=== PATIENT | female | born 1960 | race African-American/Black ===

== ENCOUNTER 2017-10-06 10:35 | Observation (INO) | payer OTHER ==
[2017-10-06 11:04] LABS: ABSOLUTE BASOPHILS # (AUTO) 0.1 10^3/uL (0.0-0.2); ABSOLUTE EOSINOPHILS # (AUTO) 0.2 10^3/uL (0.0-0.6); ABSOLUTE LYMPHOCYTES (AUTO) 3.3 10^3/uL (0.5-4.7); ABSOLUTE MONOCYTES (AUTO) 0.7 10^3/uL (0.1-1.4); ABSOLUTE NEUT (AUTO) 7.7 10^3/uL (1.7-8.2); BASOPHILS % (AUTO) 0.6 % (0-2); EOSINOPHILS % (AUTO) 1.5 % (0-6); HEMATOCRIT 39.2 % (36.0-47.0); HEMOGLOBIN 12.9 g/dL (12.0-15.5); LYMPHOCYTES % (AUTO) 27.9 % (13-45); MEAN CORPUSCULAR HEMOGLOBIN 28.5 pg (27.0-33.4); MEAN CORPUSCULAR HGB CONC 33.1 g/dL (32.0-36.0); MEAN CORPUSCULAR VOLUME 86 fl (80-97); MONOCYTES % (AUTO) 5.7 % (3-13); PLATELET COUNT 451 10^3/uL (150-450); RED BLOOD COUNT 4.55 10^6/uL (3.72-5.28); RED CELL DISTRIBUTION WIDTH 14.1 % (11.5-14.0); SEGMENTED NEUTROPHILS % (AUTO) 64.3 % (42-78); TOTAL CELLS COUNTED % (AUTO) 100 %; WHITE BLOOD COUNT 11.9 10^3/uL (4.0-10.5)
--- NOTE | 2017-10-06 11:36 | EKG REPORT ---
SEVERITY:- ABNORMAL ECG - SINUS RHYTHM LEFT VENTRICULAR HYPERTROPHY : Confirmed by: Gauri Pérez MD 06-Oct-2017 11:36:16
--- NOTE | 2017-10-06 12:13 | RADIOLOGY REPORT (SQ) ---
EXAM DESCRIPTION: CHEST SINGLE VIEW COMPLETED DATE/TIME: 10/06/2017 11:24 am REASON FOR STUDY: chest pain COMPARISON: 09/26/2010 TWO-VIEW CHEST EXAM PARAMETERS: NUMBER OF VIEWS: One view. TECHNIQUE: Single frontal radiographic view of the chest acquired. RADIATION DOSE: NA LIMITATIONS: None. FINDINGS: LUNGS AND PLEURA: No opacities, masses or pneumothorax. No pleural effusion. MEDIASTINUM AND HILAR STRUCTURES: No masses. Contour normal. HEART AND VASCULAR STRUCTURES: Heart normal in size. Normal vasculature. BONES: No acute findings. HARDWARE: None in the chest. OTHER: No other significant finding. IMPRESSION: NO ACUTE RADIOGRAPHIC FINDING IN THE CHEST. TECHNICAL DOCUMENTATION: JOB ID: [id number] [employer]- All Rights Reserved Reading location - IP/workstation name: [email or web address]
[2017-10-06 12:24] LABS: ALANINE AMINOTRANSFERASE 23 U/L (9-52); ALBUMIN 4.3 g/dL (3.5-5.0); ALKALINE PHOSPHATASE 66 U/L (38-126); ANION GAP 10 (5-19); ASPARTATE AMINO TRANSFERASE 20 U/L (14-36); BILIRUBIN,DIRECT 0.2 mg/dL (0.0-0.4); BILIRUBIN,TOTAL 0.5 mg/dL (0.2-1.3); BLOOD UREA NITROGEN 11 mg/dL (7-20); CALCIUM 9.5 mg/dL (8.4-10.2); CARBON DIOXIDE 26 mmol/L (22-30); CHLORIDE 106 mmol/L (98-107); GLUCOSE 105 mg/dL (75-110); POTASSIUM 4.3 mmol/L (3.6-5.0); SODIUM 142.1 mmol/L (137-145)
--- NOTE | 2017-10-06 12:52 | ER Document Report ---
ED Cardiac - General Chief Complaint: Chest Pain Stated Complaint: CHEST PAIN Time Seen by Provider: 10/06/17 12:42 Mode of Arrival: Ambulatory Information source: Patient TRAVEL OUTSIDE OF THE U.S. IN LAST 30 DAYS: No - HPI Patient complains to provider of: Chest pain Use of: denies: Alcohol, Amphetamines, Bath salts, Caffeine, Cocaine, Decongestants Was the onset of pain: Sudden Is the pain a: New problem Chest pain location: Substernal Quality of pain: Intermittent, Dull, Sharp Severity now: None Severity at worst: Moderate Chest pain precipitating factors: Mental Exertion/Stress Cardiac risk factors: Hypertension, Smoker, + Family history Positive cardiac history: No Associated symptoms: Anxiety, Shortness of breath. denies: Diaphoresis, Nausea/ vomiting, Syncope Exacerbated by: Emotional stress Relieved by: Nothing Similar symptoms previously: No Recently seen / treated by doctor: Yes - THIS RADHA Nails. HEALTH Notes: Recently traveled by automobile to [place] and back on [employer]. - Related Data Allergies/Adverse Reactions: nuts Allergy (Severe, Uncoded 01/26/11 13:51) Anaphylaxis Past Medical History - General Information source: Patient - Social History Smoking Status: Current Every Day Smoker Cigarette use (# per day): Yes Chew tobacco use (# tins/day): No Frequency of alcohol use: Rare Drug Abuse: None Lives with: Family Family History: CAD Patient has suicidal ideation: No Patient has homicidal ideation: No - Past Medical History Cardiac Medical History: Reports: Hx Hypercholesterolemia, Hx Hypertension Pulmonary Medical History: Reports: Hx Bronchitis EENT Medical History: Reports: None Neurological Medical History: Reports: None Endocrine Medical History: Reports: None Renal/ Medical History: Reports: None. Denies: Hx Peritoneal Dialysis Malignancy Medical History: Reports: None GI Medical History: Reports: Hx Gastroesophageal Reflux Disease Musculoskeletal Medical History: Reports None Psychiatric Medical History: Reports: None Past Surgical History: Reports: Hx Section, Hx Hysterectomy - Immunizations Hx Diphtheria, Pertussis, Tetanus Vaccination: Yes - 2009 Review of Systems - Review of Systems Constitutional: No symptoms reported EENT: No symptoms reported Cardiovascular: See HPI Respiratory: See HPI Gastrointestinal: No symptoms reported Genitourinary: No symptoms reported Female Genitourinary: Post menopausal Musculoskeletal: No symptoms reported Skin: No symptoms reported Neurological/Psychological: No symptoms reported Physical Exam - Vital signs Vitals: Resp 18 10/06/17 10:42 Interpretation: Hypertensive. No: Tachycardic, Tachypneic - General General appearance: Appears well, Alert In distress: None - HEENT Head: Normocephalic Eyes: Normal Conjunctiva: Normal Ears: Normal Nasal: Normal Mouth/Lips: Normal Mucous membranes: Normal - Respiratory Respiratory status: No respiratory distress Breath sounds: Normal - Cardiovascular Rhythm: Regular Heart sounds: Normal auscultation Murmur: No - Abdominal Inspection: Normal Distension: No distension - Back Back: Normal - Extremities General upper extremity: Normal inspection General lower extremity: Normal inspection. No: Tender, Edema - Neurological Neuro grossly intact: Yes Cognition: Normal Orientation: AAOx4 - Psychological Associated symptoms: Normal affect, Normal mood - Skin Skin Temperature: Warm Skin Moisture: Dry Skin Color: Normal Skin Turgor: Elastic Course - Vital Signs Vital signs: Temp Pulse Resp BP Pulse Ox 14 139/101 H 100 10/06/17 12:01 10/06/17 12:00 10/06/17 12:01 - Laboratory Result Diagrams: 10/06/17 10:15 10/06/17 11:53 Laboratory results interpreted by me: 10/06/17 10:15 WBC 11.9 H RDW 14.1 H Plt Count 451 H - EKG Interpretation by Wy EKG shows normal: Sinus rhythm, [place], Intervals, QRS Complexes, ST-T Waves - LAT. T ABNLS, NS Rate: Normal Rhythm: NSR - Consults DR. Marsha MALDONADO Time consulted: 14:24 Consulted provider: will come to ER Discharge - Discharge Clinical Impression: Chest pain Qualifiers: Chest pain type: unspecified Qualified Code(s): R07.9 - Chest pain, unspecified Condition: Good Disposition: ADMITTED OBSERVATION Unit Admitted: Telemetry
[2017-10-06] MEDS ORDERED: DEXTROSE 40% GEL 15 GM TUBE PO PRN ×2 (18:39)
[2017-10-06] MEDS ORDERED: DEXTROSE 50%-WATER 25 GM/50 ML DISP.SYRIN IV PRN ×2 (18:39)
[2017-10-06] MEDS ORDERED: NITROGLYCERIN 0.4 MG/TAB 25 TAB/BOTTLE SL PRN (18:39)
[2017-10-06] MEDS ORDERED: GLUCAGON,HUMAN RECOMB 1 MG INJ SUBCUT PRN (18:39)
--- NOTE | 2017-10-06 18:39 | PDOC H&P ---
History of Present Illness Admission Date/PCP: 10/06/17 14:50 Patient complains of: CHEST PAIN. History of Present Illness: MONTEZ LOWERY is a 56 year old female Pt is a 56 y/o AAF admitted with c/o chest pain that has been going on intermittently for past few weeks. Pt is a smoker and d/w her extensively about tobacco cessation. Pt denies any other significant PMH. Pt work at [employer] in [place]. Pt is under a lot of stress due to her family . Currently chest pain free. Past Medical History Cardiac Medical History: Reports: Myocardial Infarction, Hyperlipidema, Hypertension Pulmonary Medical History: Reports: Bronchitis EENT Medical History: Reports: None Neurological Medical History: Reports: None Endocrine Medical History: Reports: None Renal/ Medical History: Reports: None Malignancy Medical History: Reports: None GI Medical History: Reports: Gastroesophageal Reflux Disease Musculoskeltal Medical History: Reports: None Psychiatric Medical History: Reports: None Past Surgical History Past Surgical History: Reports: Section, Hysterectomy Social History Lives with: Family Smoking Status: Current Every Day Smoker Frequency of Alcohol Use: None Drugs: None - Advance Directive Resuscitation Status: Full Code Family History Family History: CAD Parental Family History Reviewed: Yes Children Family History Reviewed: NA Sibling(s) Family History Reviewed.: NA Medication/Allergy Home Medications: Multivitamin [One-A-Day Essential] 1 each PO DAILY 10/06/17 Vitamin B Complex [B Complex] 1 each PO DAILY 10/06/17 Allergies/Adverse Reactions: nuts Allergy (Severe, Uncoded 01/26/11 13:51) Anaphylaxis Review of Systems Constitutional: ABSENT: anorexia, chills, headache(s), weight gain, weight loss Eyes: ABSENT: visual disturbances Cardiovascular: PRESENT: chest pain. ABSENT: edema, palpitations Gastrointestinal: ABSENT: abdominal pain Neurological: ABSENT: frequent falls Physical Exam Vital Signs: Temp Pulse Resp BP Pulse Ox 23 H 129/75 H 96 10/06/17 17:29 10/06/17 17:29 10/06/17 17:29 General appearance: PRESENT: no acute distress, cooperative Head exam: PRESENT: atraumatic, normocephalic Eye exam: PRESENT: EOMI Ear exam: PRESENT: normal external ear exam Neck exam: ABSENT: carotid bruit, lymphadenopathy, tenderness Respiratory exam: PRESENT: clear to auscultation lucia. ABSENT: rhonchi, wheezes Cardiovascular exam: PRESENT: RRR. ABSENT: diastolic murmur GI/Abdominal exam: PRESENT: soft. ABSENT: firm, tenderness Rectal exam: PRESENT: deferred Neurological exam: PRESENT: alert, awake, oriented to person, oriented to place , oriented to time, oriented to situation, CN II-XII grossly intact Results Impressions: Chest X-Ray 10/06/17 00:00 IMPRESSION: NO ACUTE RADIOGRAPHIC FINDING IN THE CHEST. Assessment & Plan - Diagnosis (1) Chest pain Qualifiers: Chest pain type: unspecified Is this a current diagnosis for this admission?: Yes Plan: We will admit pt for eval of cardiac chest pain. we will cycle cardiac enzymes . pt will get stress test in am. (2) Eczema of both hands Plan: Started pt on claritin. (3) Tobacco abuse counseling Is this a current diagnosis for this admission?: Yes Plan: d/w pt about tobacco cessation. nicotine patch/ (4) Tobacco abuse Is this a current diagnosis for this admission?: Yes - Time Time Spent: 30 to 50 Minutes Anticipated discharge: Home Within: within 24 hours - Inpatient Certification Based on my medical assessment, after consideration of the patient's comorbidities, presenting symptoms, or acuity I expect that the services needed warrant INPATIENT care.: Yes I certify that my determination is in accordance with my understanding of Medicare's requirements for reasonable and necessary INPATIENT services [42 CFR 412.3e].: Yes Medical Necessity: Need For Continuous Telemetry Monitoring
[2017-10-06] MEDS ORDERED: LISINOPRIL 5 MG TABLET PO ONE (18:46)
[2017-10-06] MEDS ORDERED: DIPHENHYDRAMINE HCL 25 MG CAPSULE PO PRN (19:50)
[2017-10-06] MEDS ORDERED: LORATADINE 10 MG TABLET PO SCH (22:00)
[2017-10-06] MEDS ORDERED: ATORVASTATIN CALCIUM 40 MG TABLET PO SCH (22:00)
[2017-10-06] MEDS ORDERED: LORAZEPAM 1 MG TABLET PO ONE (22:00)
[2017-10-07] MEDS ORDERED: LANSOPRAZOLE 30 MG TAB.RAP.DR PO SCH (06:00)
[2017-10-07 06:19] LABS: APPEARANCE,URINE CLEAR; BILIRUBIN,URINE NEGATIVE (NEGATIVE); COLOR,URINE STRAW; GLUCOSE, URINE NEGATIVE (NEGATIVE); KETONES,URINE NEGATIVE (NEGATIVE); LEUKOCYTE ESTERASE,URINE TRACE (NEGATIVE); NITRITE,URINE NEGATIVE (NEGATIVE); PROTEIN,URINE NEGATIVE (NEGATIVE); URINE SPECIFIC GRAVITY 1.013; UROBILINOGEN,URINE NEGATIVE mg/dL (<2.0)
[2017-10-07 09:44] LABS: ABSOLUTE BASOPHILS # (AUTO) 0.1 10^3/uL (0.0-0.2); ABSOLUTE EOSINOPHILS # (AUTO) 0.3 10^3/uL (0.0-0.6); ABSOLUTE LYMPHOCYTES (AUTO) 2.8 10^3/uL (0.5-4.7); ABSOLUTE MONOCYTES (AUTO) 0.5 10^3/uL (0.1-1.4); ABSOLUTE NEUT (AUTO) 6.5 10^3/uL (1.7-8.2); BASOPHILS % (AUTO) 0.6 % (0-2); EOSINOPHILS % (AUTO) 2.6 % (0-6); HEMATOCRIT 39.3 % (36.0-47.0); HEMOGLOBIN 12.9 g/dL (12.0-15.5); LYMPHOCYTES % (AUTO) 27.6 % (13-45); MEAN CORPUSCULAR HEMOGLOBIN 28.4 pg (27.0-33.4); MEAN CORPUSCULAR HGB CONC 32.8 g/dL (32.0-36.0); MEAN CORPUSCULAR VOLUME 87 fl (80-97); MONOCYTES % (AUTO) 5.4 % (3-13); PLATELET COUNT 423 10^3/uL (150-450); RED BLOOD COUNT 4.54 10^6/uL (3.72-5.28); RED CELL DISTRIBUTION WIDTH 14.2 % (11.5-14.0); SEGMENTED NEUTROPHILS % (AUTO) 63.8 % (42-78); TOTAL CELLS COUNTED % (AUTO) 100 %; WHITE BLOOD COUNT 10.2 10^3/uL (4.0-10.5)
[2017-10-07 09:52] LABS: ANION GAP 10 (5-19); BLOOD UREA NITROGEN 19 mg/dL (7-20); CALCIUM 9.4 mg/dL (8.4-10.2); CARBON DIOXIDE 25 mmol/L (22-30); CHLORIDE 109 mmol/L (98-107); GLUCOSE 108 mg/dL (75-110); POTASSIUM 4.3 mmol/L (3.6-5.0); SODIUM 144.3 mmol/L (137-145)
[2017-10-07] MEDS ORDERED: ASPIRIN 325 MG TABLET, ENT COATED PO SCH (10:00)
--- NOTE | 2017-10-07 12:46 | DRAGON STRESS TEST REPORT ---
INTRAVENOUS LEXISCAN CARDIOLITE STRESS TEST USING SINGLE PHOTON EMMISION COMPUTERIZED TOMOGRAPHIC. DATE OF PROCEDURE: September, INDICATION : Chest pain CARDIAC RISK FACTORS: Dyslipidemia, tobacco abuse, family history of CAD RESTING EKG: Sinus rhythm with minor nonspecific T-wave inversion, possible LVH STRESS EKG: No significant ST segment changes noted with LexiScan bolus REASON FOR TERMINATION: Protocol. PROCEDURE REPORT: Baseline heart rate 73 beats per minute with blood pressure of 142/78. Patient had no significant complaints. Patient was bolused with Lexiscan 0.4 mg intravenously followed by saline bolus. Heart rate at 2 minutes post bolus 105 with a blood pressure of 123/81. 3 minutes post bolus heart rate 103 with blood pressure of 123/72. No significant EKG changes were noted. Patient had no significant complaints during the procedure or postprocedure. CONCLUSIONS: Normal EKG and hemodynamic response to IV LexiScan. NUCLEAR DATA: At rest the patient was given 11.84 millicuries of technetium 99 sestamibi injected intravenously. As per protocol rest gated SPECT images were obtained. On day of stress test, the patient was given intravenous LexiScan at a dose of 0.4 mg in 5 mL intravenously, followed by flush with normal saline. Subsequently the stress dose of 32.6 millicuries of technetium 99 sestamibi was injected intravenously. As per protocol stress gated images were obtained. NUCLEAR INTERPRETATION: Both raw and processed data were used for interpretation. Visual, qualitative, computer-generated quantitative data was used. There was good myocardial uptake of technetium compound. Motion artifact and soft tissue attenuations were noted. Increased visceral uptake was noted. No definitive areas of transient perfusion defect noted, No definitive areas of fixed perfusion defect or scars noted. Mild decreased uptake noted in the distal inferior wall wall, felt to be artifactual. No corresponding wall motion abnormalities noted. Imaging was performed without attenuation correction. EKG gated imaging showed LV EF at 42 %, rest and stress gated EF similar visually. T. I D. ratio was 1.18. Lung heart ratio noted to be within normal limits 0.41. No significant extracardiac and abnormal radiotracer activities were noted. RV free wall uptake was noted to be WNL. IMPRESSION: Also refer to comments under nuclear interpretation. Also test results needs to be interpreted in the context of pretest probability. 1. No definitive areas of transient perfusion defect noted. 2. There is no definitive scintigraphic evidence of myocardial infarction/scar. 3. EKG gated imaging shows left ventricular ejection fraction of approx. 42 %. 4. Clinical correlation requested as occasionally single vessel disease or balanced ischemia could be missed. In approximately 10% of the cases Lexiscan may not cause adequate vasodilatory stress. RECOMMENDATIONS: Aggressive risk factor modification and medical management. Further evaluation may be needed if continued symptoms or other high risk indicators are noted on clinical evaluation. Close cardiology follow-up is also recommended. Clinical correlation with echocardiogram derived ejection fraction. Inability to exercise by itself can lead to increased cardiovascular event risks. Consider cardiology consultation and or follow-up if clinically indicated. I am available for cardiology evaluation and consultation if requested by the brusher tender, unless patient already has a flume worker. Dr. Derrick Hurtado. MRCP Board certified in cardiology and sleep medicine. Board certified in nuclear cardiology, adult echocardiography. MP
[2017-10-07] MEDS ORDERED: CAFFEINE CITRATED INJ/PF 60 MG/3 ML SDV ONE (13:49)
[2017-10-07] MEDS ORDERED: REGADENOSON INJ 0.4 MG/5 ML DISP.SYRIN IV ONE (13:49)
--- NOTE | 2017-10-07 16:16 | PDOC DISCHARGE SUMMARY ---
General - Admit/Disc Date/PCP Admission Date/Primary Care Provider: 10/06/17 14:50 Discharge Date: 10/07/17 - Discharge Diagnosis (1) Chest pain Is this a current diagnosis for this admission?: Yes Summary: Patient status post negative Cardiolite. With recommendations for aggressive lifestyle modification. Patient advised for tobacco cessation. Patient to take an aspirin 81 mg for primary prevention of coronary event. (2) Eczema of both hands Is this a current diagnosis for this admission?: Yes Summary: Patient to continue antihistamine therapy for her eczema. Overnight trial of Claritin 10 mg has improved her neck rash significantly. (3) Tobacco abuse counseling Is this a current diagnosis for this admission?: Yes Summary: Discussed with with patient about the side effects and the risks of smoking starting from cancer heart disease stable COPD. (4) Tobacco abuse Is this a current diagnosis for this admission?: Yes - Additional Information Resuscitation Status: Full Code Discharge Diet: Cardiac Discharge Activity: Walk Frequently Prescriptions: Aspirin [Aspirin 81 mg Chewable Tablet] 81 mg PO DAILY #1 pkg Loratadine [Claritin 10 mg Tablet] 10 mg PO QHS #30 tablet Simvastatin [Zocor 5 mg Tablet] 5 mg PO QHS #30 tablet Home Medications: Multivitamin [One-A-Day Essential] 1 each PO DAILY 10/06/17 Vitamin B Complex [B Complex] 1 each PO DAILY 10/06/17 Aspirin [Aspirin 81 mg Chewable Tablet] 81 mg PO DAILY #1 pkg 10/07/17 Loratadine [Claritin 10 mg Tablet] 10 mg PO QHS #30 tablet 10/07/17 Simvastatin [Zocor 5 mg Tablet] 5 mg PO QHS #30 tablet 10/07/17 Additional Information: She to follow-up with her primary care physician. Hospital follow-up appointment with primary care physician in 1 week. History of Present Illness History of Present Illness: MONTEZ LOWERY is a 56 year old female Pt is a 56 y/o AAF admitted with c/o chest pain that has been going on intermittently for past few weeks. Pt is a smoker and d/w her extensively about tobacco cessation. Pt denies any other significant PMH. Pt work at [employer] in [place]. Pt is under a lot of stress due to her family . Currently chest pain free. Hospital Course Hospital Course: Patient is a very pleasant 56-year-old -Spanish female admitted yesterday in observation status with complaints of intermittent chest pain. She has a strong family history of heart disease. Patient is also at moderate high risk for coronary artery disease she is a smoker she is postmenopausal and she has strong family history. Currently patient is alert awake and oriented denies any chest pain shortness of breath. Patient is giving her own history . Daughter is at bedside. Discussed patient the importance and significance of tobacco cessation. Also discussed with the patient the the life-threatening risk she is putting herself at, with increased discussed lung cancer emphysema bladder cancer. She agrees with plan to stay discussed with patient about lifestyle modification especially with tobacco cessation. Tobacco abuse counseling provided for 5 minutes. Physical Exam Vital Signs: Temp Pulse Resp BP Pulse Ox 98.3 F 73 16 138/74 H 97 10/07/17 15:39 10/07/17 15:39 10/07/17 15:39 10/07/17 15:39 10/07/17 15:39 Intake & Output 10/06/17 10/07/17 10/08/17 06:59 06:59 06:59 Intake Total 336 Output Total 300 Balance 36 Weight 165 lb 5.547 oz General appearance: PRESENT: no acute distress, cooperative Head exam: PRESENT: atraumatic, normocephalic Eye exam: PRESENT: EOMI Ear exam: PRESENT: normal external ear exam Neck exam: ABSENT: tenderness Respiratory exam: PRESENT: clear to auscultation lucia Cardiovascular exam: PRESENT: RRR GI/Abdominal exam: PRESENT: normal bowel sounds, soft. ABSENT: distended, tenderness Neurological exam: PRESENT: alert, awake, oriented to person, oriented to place , oriented to time Results Laboratory Results: 10/07/17 08:05 10/07/17 08:05 10/07/17 10/07/17 10/07/17 05:35 08:05 08:05 WBC 10.2 RBC 4.54 Hgb 12.9 Hct 39.3 MCV 87 MCH 28.4 MCHC 32.8 RDW 14.2 H Plt Count 423 Seg Neutrophils % 63.8 Lymphocytes % 27.6 Monocytes % 5.4 Eosinophils % 2.6 Basophils % 0.6 Absolute Neutrophils 6.5 Absolute Lymphocytes 2.8 Absolute Monocytes 0.5 Absolute Eosinophils 0.3 Absolute Basophils 0.1 Sodium 144.3 Potassium 4.3 Chloride 109 H Carbon Dioxide 25 Anion Gap 10 BUN 19 Creatinine 0.62 Est GFR ( Amer) > 60 Est GFR (Non-Af Amer) > 60 Glucose 108 Calcium 9.4 Urine Color STRAW Urine Appearance CLEAR Urine pH 5.0 Ur Specific Raymond 1.013 Urine Protein NEGATIVE Urine Glucose (UA) NEGATIVE Urine Ketones NEGATIVE Urine Blood NEGATIVE Urine Nitrite NEGATIVE Ur Leukocyte Esterase TRACE H Urine WBC (Auto) 2 Urine RBC (Auto) 0 10/07/17 10/07/17 08:05 12:04 Troponin I < 0.012 < 0.012 Impressions: Chest X-Ray 10/06/17 00:00 IMPRESSION: NO ACUTE RADIOGRAPHIC FINDING IN THE CHEST. Qualifiers - * PATIENT BEING DISCHARGED WITH ANY OF THE FOLLOWING DIAGNOSIS: No VTE patient discharged on overlapping Therapy?: No
[2017-10-07 16:52] VITALS: BP 121/71
== END 2017-10-07 17:50 | disposition home or self-care (01) ==
LOC: ER 10:35 → EH 14:50 → 4S 18:43
PROVIDERS: ADMIT Internal Medicine; ATTEND Internal Medicine
PROC: HZ31ZZZ Individual Counseling for Substance Abuse Treatment, Behavioral (ICD-10-PCS; principal; 2017-10-06)
DX: R07.9 Chest pain, unspecified (principal); L30.9 Dermatitis, unspecified; F17.210 Nicotine dependence, cigarettes, uncomplicated; R06.02 Shortness of breath; F41.9 Anxiety disorder, unspecified; Z73.3 Stress, not elsewhere classified; I25.2 Old myocardial infarction; I10 Essential (primary) hypertension; Z63.9 Problem related to primary support group, unspecified; Z82.49 Family history of ischemic heart disease and other diseases of the circulatory system; Z78.0 Asymptomatic menopausal state; Z87.19 Personal history of other diseases of the digestive system; Z86.79 Personal history of other diseases of the circulatory system
CPT/HCPCS: 93005; 99285; 36415 ×2; 85025 ×2; 80048; 80053; 81001; 84484 ×2; 85379; 93017; 71045; 78452; 93010; 99406; G0378 ×2; A9500; J2785; J0706; J3490; Q9969

== ENCOUNTER 2018-08-06 08:57 | Emergency (ER) | payer OTHER ==
[2018-08-06 09:11] VITALS: BP 151/99
--- NOTE | 2018-08-06 09:26 | ER Document Report ---
ED Medical Screen (RME) - General Chief Complaint: Chest Pain Stated Complaint: CHEST PAIN Time Seen by Provider: 08/06/18 09:23 TRAVEL OUTSIDE OF THE U.S. IN LAST 30 DAYS: No - HPI Notes: 08/06/18 09:23 Patient is a 57-year-old female with a history of coronary artery disease (STEMI in 2018), hypertension, hypercholesterolemia who presents complaining of left- sided chest pain that is been ongoing for the past 3 days. Patient states that taking deep breaths and movements make the pain worse. Patient states that she does feel pain into her left arm and shoulder as well. Patient is not currently taking any medications as she "does not like to take medicines." + smoker. Denies any prolonged immobilization, distance travel, recent surgery/trauma, personal cancer history, hormone use, or previous DVT/PE. Denies LEES, dizziness, sweats, fever, neck pain, URI, Abd pain, dysuria, back pain, or rash. I have treated and performed a rapid initial assessment of this patient. A comprehensive ED assessment and evaluation of the patient, analysis of test results and completion of medical decision making process will be conducted by additional ED providers. PHYSICAL EXAMINATION: GENERAL: Well-appearing, well-nourished and in no acute distress. A&Ox4. Answers questions appropriately. Chest: moderate tenderness to palpation LUNGS: Breath sounds clear to auscultation bilaterally and equal. No wheezes rales or rhonchi. HEART: Regular rate and rhythm without murmurs, rubs, gallops. Extremities: No cyanosis, clubbing, or edema b/l. NEUROLOGICAL: Normal speech, normal gait. PSYCH: Normal mood, normal affect. - Related Data Allergies/Adverse Reactions: nuts Allergy (Severe, Uncoded 08/06/18 08:57) Anaphylaxis Past Medical History - Past Medical History Cardiac Medical History: Reports: Hx Heart Attack, Hx Hypercholesterolemia, Hx Hypertension Pulmonary Medical History: Reports: Hx Bronchitis Renal/ Medical History: Denies: Hx Peritoneal Dialysis GI Medical History: Reports: Hx Gastroesophageal Reflux Disease Past Surgical History: Reports: Hx Section, Hx Hysterectomy - Immunizations Hx Diphtheria, Pertussis, Tetanus Vaccination: Yes - 2009 History of Influenza Vaccine for 11/2016 - 04/2017 Season: Unknown Physical Exam - Vital signs Vitals: Temp Pulse Resp BP Pulse Ox 98.2 F 105 H 18 151/99 H 95 08/06/18 09:09 08/06/18 09:09 08/06/18 09:09 08/06/18 09:09 08/06/18 09:09 Course - Vital Signs Vital signs: Temp Pulse Resp BP Pulse Ox 98.2 F 105 H 18 151/99 H 95 08/06/18 09:09 08/06/18 09:09 08/06/18 09:09 08/06/18 09:09 08/06/18 09:09
--- NOTE | 2018-08-06 10:06 | RADIOLOGY REPORT (SQ) ---
EXAM DESCRIPTION: CHEST SINGLE VIEW COMPLETED DATE/TIME: 08/06/2018 9:43 am REASON FOR STUDY: CP COMPARISON: 09/26/2010 EXAM PARAMETERS: NUMBER OF VIEWS: One view. TECHNIQUE: Single frontal radiographic view of the chest acquired. RADIATION DOSE: NA LIMITATIONS: None. FINDINGS: LUNGS AND PLEURA: Subtle linear density in the left base and costophrenic angle most likel y atelectasis. No infiltrate. No effusions. MEDIASTINUM AND HILAR STRUCTURES: No masses. Contour normal. HEART AND VASCULAR STRUCTURES: Heart normal in size. Normal vasculature. BONES: No acute findings. HARDWARE: None in the chest. OTHER: No other significant finding. IMPRESSION: Atelectasis. TECHNICAL DOCUMENTATION: JOB ID: [id number] [employer] [place]- All Rights Reserved Reading location - IP/workstation name: [email or web address]
[2018-08-06 10:32] LABS: ABSOLUTE BASOPHILS # (AUTO) 0.1 10^3/uL (0.0-0.2); ABSOLUTE EOSINOPHILS # (AUTO) 0.1 10^3/uL (0.0-0.6); ABSOLUTE LYMPHOCYTES (AUTO) 3.7 10^3/uL (0.5-4.7); ABSOLUTE MONOCYTES (AUTO) 0.7 10^3/uL (0.1-1.4); ABSOLUTE NEUT (AUTO) 11.7 10^3/uL (1.7-8.2); BASOPHILS % (AUTO) 0.8 % (0-2); EOSINOPHILS % (AUTO) 0.7 % (0-6); HEMATOCRIT 44.8 % (36.0-47.0); HEMOGLOBIN 14.5 g/dL (12.0-15.5); LYMPHOCYTES % (AUTO) 22.6 % (13-45); MEAN CORPUSCULAR HEMOGLOBIN 27.5 pg (27.0-33.4); MEAN CORPUSCULAR HGB CONC 32.4 g/dL (32.0-36.0); MEAN CORPUSCULAR VOLUME 85 fl (80-97); MONOCYTES % (AUTO) 4.6 % (3-13); PLATELET COUNT 511 10^3/uL (150-450); RED BLOOD COUNT 5.28 10^6/uL (3.72-5.28); RED CELL DISTRIBUTION WIDTH 14.8 % (11.5-14.0); SEGMENTED NEUTROPHILS % (AUTO) 71.3 % (42-78); TOTAL CELLS COUNTED % (AUTO) 100 %; WHITE BLOOD COUNT 16.4 10^3/uL (4.0-10.5)
--- NOTE | 2018-08-06 10:44 | EKG REPORT ---
SEVERITY:- ABNORMAL ECG - SINUS TACHYCARDIA LEFT VENTRICULAR HYPERTROPHY : Confirmed by: Conner Dougherty MD 06-Aug-2018 10:44:35
--- NOTE | 2018-08-06 10:45 | ER Document Report ---
ED General - General Chief Complaint: Chest Pain Stated Complaint: CHEST PAIN Time Seen by Provider: 08/06/18 09:23 Primary Care Provider: KIM CUTLER MD [Primary Care Provider] - Follow up as needed TRAVEL OUTSIDE OF THE [place] IN LAST 30 DAYS: No - HPI Notes: Patient is a 57-year-old female, with a known history of coronary artery disease, who presents to the emergency department for evaluation. She has had sharp left-sided chest pain, with occasional radiation to the shoulder, for the last 4 days. She denies any inciting factors that started the pain. She states is been constant since onset. She has not tried anything to make it better, as she states "I do not like medicines." She does have a history of hypertension and hyperlipidemia, had a STEMI last year. She refuses to take any sort of medications for any of these conditions. She denies any associated nausea, diaphoresis, dyspnea, or near syncope associated. - Related Data Allergies/Adverse Reactions: nuts Allergy (Severe, Uncoded 08/06/18 08:57) Anaphylaxis Past Medical History - General Information source: Patient - Social History Smoking Status: Current Every Day Smoker Frequency of alcohol use: None Drug Abuse: None Family History: CAD Patient has suicidal ideation: No Patient has homicidal ideation: No - Past Medical History Cardiac Medical History: Reports: Hx Coronary Artery Disease, Hx Heart Attack, Hx Hypercholesterolemia, Hx Hypertension Pulmonary Medical History: Reports: Hx Bronchitis Renal/ Medical History: Denies: Hx Peritoneal Dialysis GI Medical History: Reports: Hx Gastroesophageal Reflux Disease Past Surgical History: Reports: Hx Section, Hx Hysterectomy - Immunizations Hx Diphtheria, Pertussis, Tetanus Vaccination: Yes - 2009 Review of Systems - Review of Systems Constitutional: No symptoms reported EENT: No symptoms reported Cardiovascular: See HPI Respiratory: No symptoms reported Gastrointestinal: No symptoms reported Genitourinary: No symptoms reported Musculoskeletal: No symptoms reported Skin: No symptoms reported Neurological/Psychological: No symptoms reported Physical Exam - Vital signs Vitals: Temp Pulse Resp BP Pulse Ox 98.2 F 105 H 18 151/99 H 95 08/06/18 09:09 08/06/18 09:09 08/06/18 09:09 08/06/18 09:09 08/06/18 09:09 - Notes Notes: Vital signs reviewed, please refer to chart. Head is normocephalic, atraumatic. Pupils equal round, reactive to light. Oral mucosa is moist. Neck is supple without meningismus. Heart is regular rate and rhythm. Lungs are clear to auscultation bilaterally. Palpation of the left chest, around the midclavicular line, over the third and fourth ribs, patient is exquisitely tender. No subcutaneous emphysema. No overlying skin changes. Chest wall excursion is equal bilaterally. Abdomen is soft, nontender, normoactive bowel sounds throughout. Extremities without cyanosis, clubbing. Posterior calves are nontender. Peripheral pulses are equal. Skin is warm and dry. Patient is awake, alert, neurological exam is nonfocal. Course - Re-evaluation Re-evalutation: 08/06/18 10:43 Patient presents emergency department for evaluation. She has multiple risk factors, being a noncompliant patient with coronary artery disease, smoker. Her pain, however, is sharp and stabbing, reproducible. Patient is placed on a hospital director and labs were obtained. Chest x-ray obtained. EKG showed no acute changes. Patient does not like medications, so will avoid treatment at this time of her pain. We will continue to follow. 08/06/18 11:39 I went back into the room to explain to the patient that her findings are normal. She told her nurse, my pain is the same, and I want IV fluids." I went back into the patient, explained to her that I do not see an indication for IV fluids, as she could drink normally, and had no significant electrolyte abnormalities. I explained to her my concern that her pain was musculoskeletal in origin. I did offer to treat with Toradol, home with anti-inflammatories and muscle relaxers. Patient was very impatient, kept interrupting this physician as I was attempting to tell her her options. She was very upset that she had to have an IV placed. I explained to the patient that in a known coronary artery disease patient who is known to be noncompliant, certainly an IV would be indicated. She became very argumentative, began swearing at me. I will go ahead and discharge the patient at this time. Again I do strongly suspect musculoskeletal pain. She will be sent home with Naprosyn and Robaxin. She is to return to the emergency department with worsening or new concerning symptoms of any sort. - Vital Signs Vital signs: Temp Pulse Resp BP Pulse Ox 98.2 F 105 H 18 151/99 H 95 08/06/18 09:09 08/06/18 09:09 08/06/18 09:09 08/06/18 09:09 08/06/18 09:09 - Laboratory Result Diagrams: 08/06/18 10:25 08/06/18 10:25 Laboratory results interpreted by me: 08/06/18 08/06/18 10:25 10:25 WBC 16.4 H RDW 14.8 H Plt Count 511 H Absolute Neutrophils 11.7 H Glucose 116 H Calcium 10.6 H - Diagnostic Test Radiology reviewed: Reports reviewed Radiology results interpreted by me: 08/06/18 10:44 Chest X-Ray 08/06/18 09:23 IMPRESSION: Atelectasis. - EKG Interpretation by Me Additional EKG results interpreted by me: 08/06/18 10:46 Sinus tachycardia with a rate of 101 bpm. Left axis deviation. Left ventricular hypertrophy. No acute ST changes concerning for ischemia or infarction. No significant change compared to prior study of September 2017. Discharge - Discharge Clinical Impression: Chest wall pain Condition: Stable Disposition: HOME, SELF-CARE Instructions: Chest Wall Pain ([facility]) Additional Instructions: Take medications as prescribed. Follow-up with your primary care physician this week. Moist heat to the painful area. Return to the emergency department with worsening or new concerning symptoms. Referrals: KIM CUTLER MD [Primary Care Provider] - Follow up as needed
[2018-08-06 10:50] LABS: ALANINE AMINOTRANSFERASE 44 U/L (9-52); ALBUMIN 4.8 g/dL (3.5-5.0); ALKALINE PHOSPHATASE 83 U/L (38-126); ANION GAP 14 (5-19); ASPARTATE AMINO TRANSFERASE 35 U/L (14-36); BILIRUBIN,DIRECT 0.3 mg/dL (0.0-0.4); BILIRUBIN,TOTAL 0.7 mg/dL (0.2-1.3); BLOOD UREA NITROGEN 18 mg/dL (7-20); CALCIUM 10.6 mg/dL (8.4-10.2); CARBON DIOXIDE 29 mmol/L (22-30); CHLORIDE 101 mmol/L (98-107); GLUCOSE 116 mg/dL (75-110); POTASSIUM 4.7 mmol/L (3.6-5.0); SODIUM 143.5 mmol/L (137-145)
[2018-08-06 10:58] LABS: NT PRO BNP 292 pg/mL (5-900)
[2018-08-06 11:02] LABS: TROPONIN I < 0.012 ng/mL
[2018-08-06] MEDS ORDERED: KETOROLAC TROMETHAMINE INJ/PF 30 MG/1 ML SDV IV ONE (11:38)
== END 2018-08-06 11:55 | disposition home or self-care (01) ==
LOC: ER 08:57
DX: R07.89 Other chest pain (principal); R00.0 Tachycardia, unspecified; I11.9 Hypertensive heart disease without heart failure; I25.10 Atherosclerotic heart disease of native coronary artery without angina pectoris; I25.2 Old myocardial infarction; Z91.14 Patient's other noncompliance with medication regimen; F17.200 Nicotine dependence, unspecified, uncomplicated; Z87.892 Personal history of anaphylaxis; Z91.018 Allergy to other foods
CPT/HCPCS: 36415; 71045; 80053; 83880; 84484; 85025; 93005; 93010; 99285

== ENCOUNTER 2019-10-03 11:27 | Emergency (ER) | payer SELFPAY ==
[2019-10-03] MEDS ORDERED: KETOROLAC TROMETHAMINE INJ/PF 30 MG/1 ML SDV IV ONE (13:42)
--- NOTE | 2019-10-03 13:44 | ER Document Report ---
ED Respiratory Problem - General Stated Complaint: CHEST PAIN,COUGH Time Seen by Provider: 10/03/19 13:12 Primary Care Provider: KIM CUTLER MD [COMMUNITY BASED STAFF] - Follow up in 3-5 days (If not improving.) Mode of Arrival: Ambulatory Information source: Patient Notes: 58-year-old female past medical history significant for hypertension presents to the emergency room complaining of midsternal epigastric pain for the past 3 days. Describes it as achy and sharp and constant. Has gotten worse since yesterday. Worse with cough. Denies nausea, vomiting, no diaphoresis. Denies chest pain. Denies any recent travel. No COVID 19 exposure. No fevers. No medications for symptoms. Drove self to the emergency room. TRAVEL OUTSIDE OF THE [place] IN LAST 30 DAYS: No - Related Data Allergies/Adverse Reactions: nuts Allergy (Severe, Uncoded 10/03/19 14:14) Anaphylaxis Past Medical History - General Information source: Patient - Social History Smoking Status: Current Every Day Smoker Frequency of alcohol use: Heavy Drug Abuse: Marijuana Family History: CAD - Past Medical History Cardiac Medical History: Reports: Hx Coronary Artery Disease, Hx Heart Attack, Hx Hypercholesterolemia, Hx Hypertension Pulmonary Medical History: Reports: Hx Bronchitis Renal/ Medical History: Denies: Hx Peritoneal Dialysis GI Medical History: Reports: Hx Gastroesophageal Reflux Disease Past Surgical History: Reports: Hx Section, Hx Hysterectomy - Immunizations Hx Diphtheria, Pertussis, Tetanus Vaccination: Yes - 2009 Review of Systems - Review of Systems Constitutional: No symptoms reported EENT: No symptoms reported Cardiovascular: denies: Chest pain Respiratory: Cough. denies: Short of breath Gastrointestinal: Abdominal pain. denies: Nausea, Vomiting Genitourinary: No symptoms reported Musculoskeletal: No symptoms reported Skin: No symptoms reported Neurological/Psychological: No symptoms reported -: Yes All other systems reviewed and negative Physical Exam - Vital signs Vitals: Temp Pulse Resp BP Pulse Ox 98.8 F 98 15 140/82 H 97 10/03/19 11:40 10/03/19 11:40 10/03/19 11:40 10/03/19 11:40 10/03/19 11:40 - Notes Notes: VITAL SIGNS: Within normal limits. GENERAL: Mild acute distress, non-toxic appearance. HEAD: Normal with no signs of head trauma. EYES: PERRLA, EOMI, conjunctiva normal, no discharge. EARS: Hearing grossly intact. NOSE: Normal. THROAT: Oropharynx is normal. NECK: Normal range of motion, no tenderness, supple, no lymphadenopathy, No adenopathy, no JVD. Lungs:: Scattered rhonchi no wheezes no rales CARDIAC: Regular rate and rhythm. S1 and S2, without murmurs, gallops, or rubs. No chest wall tenderness. VASCULAR: No Edema. Peripheral pulses normal and equal in all extremities. ABDOMEN: Tenderness on palpation to the mid epigastric region. No guarding, no rebound, no masses or pulsatile masses. No organomegaly. Positive bowel sounds x4. No CVA tenderness noted bilaterally. GASTROINTESTINAL: Bowel sounds normal GENITOURINARY: Normal, No tenderness LYMPATHTIC: No lymphadenopathy noted. MUSCULOSKELETAL: Good range of motion of all major joints. Extremities without clubbing, cyanosis or edema. NEUROLOGICAL: Alert and oriented x 3. No focal sensory or strength deficits. Speech normal. Follows commands appropriately. PSYCHIATRIC: Normal Affect, judgement and mood. SKIN: Normal appearance with no rashes or lesions. Course - Re-evaluation Re-evalutation: 10/03/19 14:07 Patient presents with midsternal epigastric type pain. States she is been drinking more heavily than normal and smoking more than normal due to increased stress at home. Will do cardiac work-up CT abdomen and pelvis, meds and reevaluate. HEART Score: History 0 ECG 0 Age 1 Risk Factors 2 Troponin 0 Total: 3 If HEART score is = 3 AND both tronponin measurments are normal, the 30 day risk of a major adverse cardiac event (all-cause mortality, myocardia infarction or need for coronary revscularization) is < 1% (Sensitivity 100%, NPV 100%). Chest pain in a patient without evidence of cardiac or other serious etiology on workup today. I discussed with patient that, based on their age, risk factors and emergency department testing today, the likelihood that their symptoms are related to a heart attack is very low (estimated risk of heart attack or over the next 30 days of less than 1%). The patient demonstrates decision making capacity and has verbalized an understanding of these risks to me. Based on this, the patient has chosen to follow-up as an outpatient. Usual chest pain return precautions reviewed. The patient states understanding and agreement with this plan. 10/03/19 15:46 Patient is upset that she is still here aware she is still waiting for her CAT scan. Discussed at length with patient that I do not have any control of the radiology department. They are aware of the test being ordered. Patient continues to complain of pain was given IV Toradol with minimal relief. Patient states she does not want any controlled substances that will make her sleepy as she has to go home and take care of her 92-year-old family member with dementia. Tylenol was offered. 10/03/19 17:49 All test results were reviewed with the patient. Patient refused both Tylenol and morphine for her pain. States that she still needs to be able to go home and take care of her elderly family member and does not want the morphine. Patient is ambulatory she is pain-free on exam. Discussed her elevated white count and viral versus a bacterial infection. Patient is requesting antibiotics in light of the elevated white count. Patient is also is requesting cover testing. Patient does have a aide that comes into the house for 3 hours a day and she is concerned about possible exposure from a home health aide. She is aware that she is required to self quarantine for the next 14 days or until she gets her test results back. I discussed white blood cells in urine. Will send urine for culture. Will discharge home on p.o. doxycycline. Counseled to follow-up outpatient with her primary care physician if not improving in 2 to 3 days. She was counseled take all medications as prescribed. Patient was given strict return to the emergency room guidelines. Return for any new or worsening symptoms. All questions were answered. Patient verbalized understanding and agrees with plan of care. 10/03/19 17:53 10/03/19 17:54 - Vital Signs Vital signs: Temp Pulse Resp BP Pulse Ox 99.0 F 94 15 160/87 H 97 10/03/19 18:19 10/03/19 18:19 10/03/19 11:40 10/03/19 18:19 10/03/19 18:19 - Laboratory Result Diagrams: 10/03/19 13:25 10/03/19 13:25 Laboratory results interpreted by me: 10/03/19 10/03/19 10/03/19 13:25 13:25 16:40 WBC 16.4 H MCHC 31.5 L RDW 14.5 H Absolute Neuts (auto) 11.4 H Glucose 115 H Ur Leukocyte Esterase TRACE H Urine Ascorbic Acid 40 H - Diagnostic Test Radiology reviewed: Reports reviewed - EKG Interpretation by Me EKG shows normal: Sinus rhythm Additional EKG results interpreted by me: 10/03/19 13:49 EKG was interpreted by ER physician Dr. Batista Normal sinus rhythm Rate 92 No acute STEMI Left atrial abnormality Left ventricular hypertrophy No T wave abnormalities 10/03/19 14:07 Discharge - Discharge Clinical Impression: Shortness of breath, Chest pain of uncertain etiology Leukocytosis Qualifiers: Leukocytosis type: unspecified Qualified Code(s): D72.829 - Elevated white blood cell count, unspecified Condition: Stable Disposition: HOME, SELF-CARE Instructions: COVID-19 Guidance for Persons Under Investigation, Chest Pain of Unclear Cause ([facility]), Leukocytosis ([facility]) Additional Instructions: Take antibiotics as prescribed. Tylenol and or Motrin at home as needed for pain. You will be notified of your COVID-19 test results within the next 6 to 8 days. Required to self quarantine until you get your COVID-19 test results. If they are positive you will need to quarantine for full 14 days. Outpatient follow-up with your primary care physician if not improving in 2 to 3 days. Return to the emergency room for any new or worsening symptoms. Prescriptions: Doxycycline Monohydrate 100 mg PO BID #20 capsule Referrals: KIM CUTLER MD [COMMUNITY BASED STAFF] - Follow up in 3-5 days (If not improving.)
[2019-10-03 13:50] LABS: ABSOLUTE BASOPHILS # (AUTO) 0.2 10^3/uL (0.0-0.2); ABSOLUTE EOSINOPHILS # (AUTO) 0.2 10^3/uL (0.0-0.6); ABSOLUTE LYMPHOCYTES (AUTO) 3.7 10^3/uL (0.5-4.7); ABSOLUTE MONOCYTES (AUTO) 0.8 10^3/uL (0.1-1.4); ABSOLUTE NEUT (AUTO) 11.4 10^3/uL (1.7-8.2); BASOPHILS % (AUTO) 0.9 % (0-2); EOSINOPHILS % (AUTO) 1.3 % (0-6); HEMATOCRIT 44.2 % (36.0-47.0); HEMOGLOBIN 13.9 g/dL (12.0-15.5); LYMPHOCYTES % (AUTO) 22.9 % (13-45); MEAN CORPUSCULAR HEMOGLOBIN 27.4 pg (27.0-33.4); MEAN CORPUSCULAR HGB CONC 31.5 g/dL (32.0-36.0); MEAN CORPUSCULAR VOLUME 87 fl (80-97); MONOCYTES % (AUTO) 4.9 % (3-13); PLATELET COUNT 445 10^3/uL (150-450); RED BLOOD COUNT 5.09 10^6/uL (3.72-5.28); RED CELL DISTRIBUTION WIDTH 14.5 % (11.5-14.0); TOTAL CELLS COUNTED % (AUTO) 100 %; WHITE BLOOD COUNT 16.4 10^3/uL (4.0-10.5)
[2019-10-03 14:04] LABS: ALBUMIN 4.7 g/dL (3.5-5.0); ALKALINE PHOSPHATASE 72 U/L (38-126); ANION GAP 8 (5-19); ASPARTATE AMINO TRANSFERASE 23 U/L (14-36); BILIRUBIN,TOTAL 0.7 mg/dL (0.2-1.3); BLOOD UREA NITROGEN 11 mg/dL (7-20); CARBON DIOXIDE 27 mmol/L (22-30); CHLORIDE 104 mmol/L (98-107); CREATINE KINASE 63 U/L (30-135); GLUCOSE 115 mg/dL (75-110); POTASSIUM 4.3 mmol/L (3.6-5.0); TOTAL PROTEIN 7.9 g/dL (6.3-8.2)
--- NOTE | 2019-10-03 14:11 | RADIOLOGY REPORT (SQ) ---
EXAM DESCRIPTION: CHEST SINGLE VIEW IMAGES COMPLETED DATE/TIME: 10/03/2019 2:03 pm REASON FOR STUDY: cough COMPARISON: 08/06/2018 EXAM PARAMETERS: NUMBER OF VIEWS: One view. TECHNIQUE: Single frontal radiographic view of the chest acquired. RADIATION DOSE: NA LIMITATIONS: None. FINDINGS: LUNGS AND PLEURA: No opacities, masses or pneumothorax. No pleural effusion. MEDIASTINUM AND HILAR STRUCTURES: No masses. Contour normal. HEART AND VASCULAR STRUCTURES: Heart normal in size. Normal vasculature. BONES: No acute findings. HARDWARE: None in the chest. OTHER: No other significant finding. IMPRESSION: NO ACUTE RADIOGRAPHIC FINDING IN THE CHEST. TECHNICAL DOCUMENTATION: JOB ID: [id number] 2010 [employer]- All Rights Reserved Reading location - IP/workstation name: [email or web address]
[2019-10-03 14:16] LABS: CREATINE KINASE MB 0.54 ng/mL (<4.55)
[2019-10-03 14:21] LABS: TROPONIN I < 0.012 ng/mL
[2019-10-03] MEDS ORDERED: ACETAMINOPHEN 325 MG TABLET PO ONE (15:46)
--- NOTE | 2019-10-03 16:46 | RADIOLOGY REPORT (SQ) ---
EXAM DESCRIPTION: CT ABD/PELVIS WITH IV ONLY IMAGES COMPLETED DATE/TIME: 10/03/2019 4:26 pm REASON FOR STUDY: abdominal pain COMPARISON: 11/19/2010 TECHNIQUE: CT scan of the abdomen and pelvis performed using helical scanning technique with dynamic intravenous contrast injection. No oral contrast. Images reviewed with lung, soft tissue, and bone windows. Reconstructed coronal and sagittal MPR images reviewed. Delayed images for evaluation of the urinary system also acquired. All images stored on PACS. All CT scanners at this facility use dose modulation, iterative reconstruction, and/or weight based d osing when appropriate to reduce radiation dose to as low as reasonably achievable (ALARA). [facility]: Dose Right [facility]: CareDose [facility]: Dose Right [facility]: Teradose 4D [facility]: Simple Star CONTRAST TYPE AND DOSE: contrast/concentration: Isovue 350.00 mmol/ml; Total Contrast Delivered: 83. 0 ml; Total Saline Delivered: 27.4 ml RENAL FUNCTION: BUN 11; creatinine 0.54 RADIATION DOSE: CT Rad equipment meets quality standard of care and radiation dose reduction techniq ues were employed. CTDIvol: 9.8 mGy. DLP: 529 mGy-cm.. LIMITATIONS: None. FINDINGS: LOWER CHEST: No significant findings. No nodules or infiltrates. LIVER: Normal size. No masses. No dilated ducts. SPLEEN: Normal size. No focal lesions. PANCREAS: No masses. No significant calcifications. No adjacent inflammation or peripancreatic fluid collections. Pancreatic duct not dilated. GALLBLADDER: No identified stones by CT criteria. No inflammatory changes to suggest cholecystitis. ADRENAL GLANDS: No significant masses or asymmetry. RIGHT KIDNEY AND URETER: No solid masses. No significant calcifications. No hydronephrosis or hyd roureter. LEFT KIDNEY AND URETER: No solid masses. No significant calcifications. No hydronephrosis or hydr oureter. AORTA AND VESSELS: No aneurysm. No dissection. Renal arteries, SMA, celiac without stenosis. RETROPERITONEUM: No retroperitoneal adenopathy, hemorrhage or masses. BOWEL AND PERITONEAL CAVITY: No masses or inflammatory changes. No free fluid or peritoneal masses. APPENDIX: Not visualized. PELVIS: No mass. No free fluid. Normal bladder. ABDOMINAL WALL: No masses. No hernias. BONES: No significant or acute findings. OTHER: No other significant finding. IMPRESSION: No evidence of acute intra-abdominal infectious/inflammatory process. TECHNICAL DOCUMENTATION: JOB ID: [id number] Quality ID # [id number]: Final reports with documentation of one or more dose reduction techniques (e.g., Au tomated exposure control, adjustment of the mA and/or kV according to patient size, use of iterative reconstruction technique) 2010 [employer]- All Rights Reserved Reading location - IP/workstation name: [email or web address]
[2019-10-03] MEDS ORDERED: MORPHINE SULFATE 10 MG/ML INJ IV ONE (17:03)
[2019-10-03 17:08] LABS: APPEARANCE,URINE SLIGHTLY-CLOUDY; BILIRUBIN,URINE NEGATIVE (NEGATIVE); GLUCOSE, URINE NEGATIVE (NEGATIVE); KETONES,URINE NEGATIVE (NEGATIVE); LEUKOCYTE ESTERASE,URINE TRACE (NEGATIVE); NITRITE,URINE NEGATIVE (NEGATIVE); PROTEIN,URINE NEGATIVE (NEGATIVE); URINE SPECIFIC GRAVITY 1.047; UROBILINOGEN,URINE NEGATIVE mg/dL (<2.0)
[2019-10-03 17:10] LABS: COLOR,URINE YELLOW
[2019-10-03 18:21] VITALS: BP 160/87
--- NOTE | 2019-10-03 18:49 | EKG REPORT ---
SEVERITY:- ABNORMAL ECG - SINUS RHYTHM PROBABLE LEFT ATRIAL ABNORMALITY PROBABLE LEFT VENTRICULAR HYPERTROPHY : Confirmed by: Conner Dougherty MD 03-Oct-2019 18:49:15
== END 2019-10-03 18:33 | disposition home or self-care (01) ==
LOC: ER 11:27
DX: R07.9 Chest pain, unspecified (principal); R10.13 Epigastric pain; R10.816 Epigastric abdominal tenderness; D72.829 Elevated white blood cell count, unspecified; R06.02 Shortness of breath; R05 Cough; I25.10 Atherosclerotic heart disease of native coronary artery without angina pectoris; I11.9 Hypertensive heart disease without heart failure; I25.2 Old myocardial infarction; F17.200 Nicotine dependence, unspecified, uncomplicated; F12.10 Cannabis abuse, uncomplicated; Z87.892 Personal history of anaphylaxis; Z91.018 Allergy to other foods; Z20.828 Contact with and (suspected) exposure to other viral communicable diseases
CPT/HCPCS: 93005; 99284; 96374; 36415; 87086; 82553; 82550; 85025; 87635; 80053; 81001; 84484; 71045; 74177; 93010; J1885; C9803